=== PATIENT | female | born 1965 | race Hispanic/Latino ===

== ENCOUNTER 2016-11-27 10:58 | Emergency (ER) | payer SELFPAY ==
[2016-11-27 11:43] LABS: #Lymphocytes 1.8 thou/uL (1.20-3.40); #Monocytes 0.4 thou/uL (0.11-0.59); #Neutrophils 2.6 thou/uL (1.40-6.50); %Basophils 0.2 % (0.0-1.0); %Eosinophils 0.9 % (0.0-10.0); %Lymphocytes 36.5 % (21.0-51.0); %Monocytes 7.9 % (0.0-10.0); Hematocrit 43.5 % (36.0-47.0); Mean Platelet Volume 8.2 fL (7.4-10.4); Red Blood Cell (RBC) Count 4.59 mill/uL (4.20-5.40); White Blood Cell (WBC) Count 4.8 thou/uL (4.8-10.8)
[2016-11-27] MEDS ORDERED: Ondansetron HCl/PF 4 MG/2 ML Vial ONE ×2 (11:47→12:32)
[2016-11-27 12:13] LABS: ALT (SGPT) 87 U/L (8-55); AST (SGOT) 94 U/L (5-34); Alkaline Phosphatase 80 U/L (40-150); Anion Gap 9 mmol/L (10-20); BUN (Urea Nitrogen) 14 mg/dL (7.0-18.7); Calc. Creatinine Clearance 0 mL/min (70-130); Calcium 9.3 mg/dL (7.8-10.44); Carbon Dioxide 28 mmol/L (22-29); Chloride 103 mmol/L (98-107); Estimated GFR-MDRD 73; Globulin 3.5 g/dL (2.4-3.5); Lipase 57 U/L (8-78); Protein, Total 7.1 g/dL (6.0-8.3)
[2016-11-27] MEDS ORDERED: Morphine Sulfate 2 MG/ML SYRINGE ONE (12:33)
[2016-11-27 12:38] LABS: Lactic Acid - Sepsis 0.9 mmol/L (0.5-2.2)
[2016-11-27 13:47] LABS: Bilirubin Negative (Negative); Blood, Urine Negative (Negative); Glucose, Urine (Dipstick) Negative (Negative); Ketone, Urine Negative (Negative); Nitrite Negative (Negative); Protein, Urine (Dipstick) Negative (Neg-Trace)
--- NOTE | 2016-11-27 14:58 | CT ---
CT ABDOMEN WITH CONTRAST CT PELVIS WITH CONTRAST: HISTORY: 51-year-old female with generalized abdominal pain, nausea, and emesis. TECHNIQUE: IV injection of iodinated contrast media: Isovue Oral contrast media: Isovue FINDINGS: Liver: No focal solid mass. Spleen: No splenomegaly. Pancreas: No mass or surrounding fat stranding. Adrenals: No mass. Kidneys: No hydronephrosis or enhancement abnormalities. Ureters: No dilation. Bladder: No pathology identified. Abdominal aorta: No aneurysm. Small bowel: No dilation. Colon: No adjacent fat stranding. Appendix: No dilation or adjacent fat stranding. Free air: None. Free fluid: None. IMPRESSION: No major pathology identified. maria dolores POS: [facility]
[2016-11-27] MEDS ORDERED: Promethazine HCl 25 MG/ML VIAL ONE (15:31)
[2016-11-27] MEDS ORDERED: Iopamidol 370 76% 50 ML VIAL FS ONE (16:08)
[2016-11-27] MEDS ORDERED: ISOVUE-370 76%-LOCM 1 ML ONE (16:09)
== END 2016-11-27 16:46 | disposition home or self-care (01) ==
LOC: ERS 10:58
DX: K52.9 Noninfective gastroenteritis and colitis, unspecified (principal); R11.2 Nausea with vomiting, unspecified; F41.9 Anxiety disorder, unspecified; F32.9 Major depressive disorder, single episode, unspecified; F20.9 Schizophrenia, unspecified; F17.210 Nicotine dependence, cigarettes, uncomplicated
CPT/HCPCS: 74177; 80053; 81003; 82150; 83605; 83690; 84703; 85025; 93005; 94760; 96361; 96374; 96375; 96376; J2270; J2405; J2550

== ENCOUNTER 2017-02-28 12:50 | Emergency (ER) | payer SELFPAY ==
[2017-02-28 13:18] LABS: #Basophils 0.1 thou/uL (0.0-0.2); #Eosinphils 0.1 thou/uL (0.0-0.7); #Lymphocytes 1.8 thou/uL (1.20-3.40); #Monocytes 0.5 thou/uL (0.11-0.59); #Neutrophils 3.3 thou/uL (1.40-6.50); %Basophils 1.2 % (0.0-1.0); %Eosinophils 1.2 % (0.0-10.0); %Lymphocytes 31.6 % (21.0-51.0); %Monocytes 8.2 % (0.0-10.0); %Neutrophils 57.7 % (42.0-75.0); Hemoglobin 14.1 g/dL (12.0-16.0); Mean Corpuscular Hemoglobin 31.3 pg (27.0-31.0); Mean Platelet Volume 7.9 fL (7.4-10.4); Platelet Count 148 thou/uL (130-400); RBC Distribution Width 12.1 % (11.5-14.5); White Blood Cell (WBC) Count 5.8 thou/uL (4.8-10.8)
[2017-02-28 13:42] LABS: ALT (SGPT) 70 U/L (8-55); AST (SGOT) 78 U/L (5-34); Albumin 3.7 g/dL (3.5-5.0); Alkaline Phosphatase 80 U/L (40-150); Anion Gap 11 mmol/L (10-20); BUN (Urea Nitrogen) 12 mg/dL (7.0-18.7); Bilirubin, Total 0.5 mg/dL (0.2-1.2); Calc. Creatinine Clearance 0 mL/min (70-130); Calcium 9.2 mg/dL (7.8-10.44); Carbon Dioxide 27 mmol/L (22-29); Chloride 104 mmol/L (98-107); Estimated GFR-MDRD 78; Globulin 3.3 g/dL (2.4-3.5); Glucose 105 mg/dL (70-105); Sodium 138 mmol/L (136-145)
[2017-02-28] MEDS ORDERED: Lidocaine Viscous Sol 2% 15 ml UD Cup ONE (13:52)
[2017-02-28] MEDS ORDERED: Ondansetron HCl/PF 4 MG/2 ML Vial ONE (13:52)
[2017-02-28] MEDS ORDERED: Milk Of Magnesia 30 ML UDCUP ONE (13:52)
[2017-02-28] MEDS ORDERED: Pantoprazole 40 MG VIAL ONE (13:52)
[2017-02-28 14:05] LABS: Lipase 44 U/L (8-78)
[2017-02-28 14:47] LABS: Bilirubin Negative (Negative); Blood, Urine Negative (Negative); Clarity CLEAR (Clear); Glucose, Urine (Dipstick) Negative (Negative); Leukocyte Trace (Negative); Nitrite Negative (Negative); Protein, Urine (Dipstick) Negative (Neg-Trace); Specific Gravity, Urine 1.014 (1.002-1.036)
[2017-02-28 14:49] LABS: Bacteria/HPF None Seen HPF (None Seen); Hyaline Casts/LPF 0-3 HYALINE CAST LPF (0-3 Hyaline); RBC/HPF 0-3 HPF (0-3); Squamous Epithelial None Seen HPF (0-3); WBC/HPF 0-3 HPF (0-3)
== END 2017-02-28 15:08 | disposition home or self-care (01) ==
LOC: ERS 12:50
DX: R11.2 Nausea with vomiting, unspecified (principal); R10.13 Epigastric pain; K21.9 Gastro-esophageal reflux disease without esophagitis; F41.9 Anxiety disorder, unspecified; F31.9 Bipolar disorder, unspecified; F20.9 Schizophrenia, unspecified; F17.210 Nicotine dependence, cigarettes, uncomplicated
CPT/HCPCS: 36415; 80053; 81003; 81015; 83690; 85025; 96374; 96375; C9113; J2405

== ENCOUNTER 2017-10-06 16:53 | Emergency (ER) | payer SELFPAY ==
[2017-10-06 17:47] LABS: #Eosinphils 0.1 thou/uL (0.0-0.7); #Lymphocytes 1.9 thou/uL (1.20-3.40); #Monocytes 0.5 thou/uL (0.11-0.59); #Neutrophils 2.5 thou/uL (1.40-6.50); %Basophils 0.5 % (0.0-1.0); %Eosinophils 1.6 % (0.0-10.0); %Lymphocytes 37.1 % (21.0-51.0); %Monocytes 10.6 % (0.0-10.0); %Neutrophils 50.2 % (42.0-75.0); Mean Corpuscular Hemoglobin 31.3 pg (27.0-31.0); Mean Corpuscular Volume 91.9 fL (78.0-98.0); Mean Platelet Volume 7.5 fL (7.4-10.4); Platelet Count 120 thou/uL (130-400); RBC Distribution Width 12.4 % (11.5-14.5); Red Blood Cell (RBC) Count 4.16 mill/uL (4.20-5.40); White Blood Cell (WBC) Count 5.1 thou/uL (4.8-10.8)
[2017-10-06 18:10] LABS: Anion Gap 9 mmol/L (10-20); BUN (Urea Nitrogen) 11 mg/dL (7.0-18.7); Calc. Creatinine Clearance 0 mL/min (70-130); Calcium 8.6 mg/dL (7.8-10.44); Carbon Dioxide 27 mmol/L (22-29); Chloride 109 mmol/L (98-107); Estimated GFR-MDRD 79; Glucose 81 mg/dL (70-105); Potassium 4.3 mmol/L (3.5-5.1); Sodium 141 mmol/L (136-145)
[2017-10-06] MEDS ORDERED: hydrOXYzine 25 MG TAB ONE (19:38)
[2017-10-06] MEDS ORDERED: Ketorolac Tromethamine 60 MG/2 ML VIAL ONE (19:38)
== END 2017-10-06 20:06 | disposition home or self-care (01) ==
LOC: ERS 16:53
DX: R25.2 Cramp and spasm (principal); F41.9 Anxiety disorder, unspecified; F31.9 Bipolar disorder, unspecified; F17.210 Nicotine dependence, cigarettes, uncomplicated
CPT/HCPCS: 36415; 80048; 85025; 96372; J1885

== ENCOUNTER 2017-12-18 01:49 | Emergency (ER) | payer SELFPAY ==
[2017-12-18 02:18] LABS: #Eosinphils 0.1 thou/uL (0.0-0.7); #Lymphocytes 2.6 thou/uL (1.20-3.40); #Monocytes 0.6 thou/uL (0.11-0.59); #Neutrophils 2.7 thou/uL (1.40-6.50); %Basophils 0.5 % (0.0-1.0); %Eosinophils 1.3 % (0.0-10.0); %Lymphocytes 43.1 % (21.0-51.0); %Monocytes 10.2 % (0.0-10.0); Hemoglobin 13.5 g/dL (12.0-16.0); Mean Corpuscular HGB CONC 32.9 g/dL (32.0-36.0); Mean Corpuscular Hemoglobin 29.8 pg (27.0-31.0); Mean Corpuscular Volume 90.5 fL (78.0-98.0); Mean Platelet Volume 7.9 fL (7.4-10.4); Platelet Count 150 thou/uL (130-400); RBC Distribution Width 12.7 % (11.5-14.5); Red Blood Cell (RBC) Count 4.54 mill/uL (4.20-5.40); White Blood Cell (WBC) Count 6.1 thou/uL (4.8-10.8)
[2017-12-18 02:39] LABS: ALT (SGPT) 68 U/L (8-55); AST (SGOT) 82 U/L (5-34); Albumin 3.7 g/dL (3.5-5.0); Alkaline Phosphatase 80 U/L (40-150); Anion Gap 11 mmol/L (10-20); BUN (Urea Nitrogen) 15 mg/dL (7.0-18.7); Bilirubin, Total 0.6 mg/dL (0.2-1.2); Calc. Creatinine Clearance 0 mL/min (70-130); Calcium 9.2 mg/dL (7.8-10.44); Carbon Dioxide 22 mmol/L (22-29); Chloride 105 mmol/L (98-107); Estimated GFR-MDRD 77; Globulin 3.4 g/dL (2.4-3.5); Glucose 129 mg/dL (70-105); Lipase 57 U/L (8-78); Potassium 4.3 mmol/L (3.5-5.1); Protein, Total 7.1 g/dL (6.0-8.3); Sodium 134 mmol/L (136-145)
[2017-12-18] MEDS ORDERED: Morphine 4 MG/ML VIAL ONE (02:52)
[2017-12-18] MEDS ORDERED: Ondansetron PF 4 MG/2 ML Vial ONE (02:52)
[2017-12-18 04:21] LABS: Bilirubin Negative (Negative); Blood, Urine Negative (Negative); Clarity CLEAR (Clear); Glucose, Urine (Dipstick) Negative (Negative); Leukocyte Negative (Negative); Nitrite Negative (Negative); Protein, Urine (Dipstick) Negative (Neg-Trace); Specific Gravity, Urine 1.014 (1.002-1.036); pH, Urine 7.5 (5.0-9.0)
--- NOTE | 2017-12-18 08:33 | RAD ---
PORTABLE CHEST ONE VIEW: Date: 12-18-17 Time: 2:12 a.m. History: Chest pain, shortness of breath. FINDINGS: Comparison is made with exam of 01-07-15. The heart size is normal. The lungs are well expanded without focal areas of consolidation, pneumotho races or pleural effusions. IMPRESSION: No radiographic evidence of acute cardiopulmonary process. POS: [facility]
--- NOTE | 2017-12-18 12:11 | CT ---
PRELIMINARY REPORT/[facility]/EMERGENCY AFTER HOURS PROCEDURE: EXAM: CT Abdomen and Pelvis With Intravenous Contrast EXAM DATE/TIME: 12/18/2017 3:32 AM CLINICAL HISTORY: 52 years old, female; Pain; Abdominal pain; Localized; Right upper quadrant (ruq); Prior surgery; Surgery type: Surgical history of cholecystectomy, surgical history of tubal ligation; Patient HX: F5 0 coming in with worsening right upper quadrant pain for the last two days. Mild cough the last few d ays with pain that started yesterday. Pain worsening since then, attempted relief with aleve without impr ovement. TECHNIQUE: Axial computed tomography images of the abdomen and pelvis with intravenous contrast. Coronal reforma tted images were created and reviewed. COMPARISON: No relevant prior studies available. FINDINGS: Lower thorax: The visualized portions of the lung bases are normal. ABDOMEN: Liver: There is a small focal hypoattenuation with peripheral enhancement within segment 7 of the isabel er probably representing a benign hemangioma. Gallbladder and bile ducts: There has been a cholecystectomy. There is a mild, expected degree of int rahepatic and common bile duct dilation. Pancreas: The pancreas appears normal. Spleen: The spleen is normal. Adrenals: The adrenal glands are normal. Kidneys and ureters: The kidneys appear normal. Stomach and bowel: There is questionable stranding at the distal stomach/proximal duodenum possibly r epresenting peptic ulcer disease. The colon is normal. There is no evidence of intestinal perforation or obstruction. Appendix: A normal appendix is identified. PELVIS: Bladder: The bladder is normal. Reproductive: The uterus is normal. ABDOMEN and PELVIS: Intraperitoneal space: Normal. No free air. No significant fluid collection. Bones/joints: No acute fracture. No dislocation. Soft tissues: Unremarkable. Vasculature: The vasculature demonstrates diffuse mild atherosclerotic calcification. Lymph nodes: Normal. No enlarged lymph nodes. IMPRESSION: 1. There is questionable stranding at the distal stomach/proximal duodenum possibly representing pept ic ulcer disease. Clinical correlation is advised. 2. RIGHT liver lesion probably a benign hemangioma in the absence of neoplastic risk factors. Thank you for allowing us to participate in the care of your patient. Dictated and Authenticated by: Wilfred Aparicio MD 12/18/2017 3:49 AM Central Time ([place] & [place]) FINAL REPORT CT ABDOMEN AND PELVIS WITH IV CONTRAST: Date: 12-18-17 Performed on emergency basis at 0334 hours. History: Upper abdomen pain. Comparison: 11-27-16 FINDINGS: I agree with the preliminary report by Dr. Aparicio from [facility]. Gallbladder is surgically a bsent. Subtle fat stranding around the pylorus and proximal duodenum. Findings may represent duodenit is. Cause is not evident. Other findings are stable. POS: [facility]
[2017-12-18] MEDS ORDERED: Iopamidol 370 76% 100 ML VIAL ONE (16:27)
== END 2017-12-18 04:37 | disposition home or self-care (01) ==
LOC: ERS 01:49
DX: R10.11 Right upper quadrant pain (principal); F17.210 Nicotine dependence, cigarettes, uncomplicated
CPT/HCPCS: 36415; 71045; 74177; 80053; 81003; 83690; 85025; 93005; 94760; 96374; 96375; J2270; J2405

== ENCOUNTER 2018-03-13 13:02 | Emergency (ER) | payer SELFPAY ==
--- NOTE | 2018-03-13 13:41 | RAD ---
TWO VIEWS LEFT WRIST: Date: 03-13-18 History: Syncopal episode at work. Patient was injured and now has left wrist deformity. Comparison: None available. FINDINGS: There is a transverse fracture involving the distal left radial metaphysis with a distal fracture fra gment displaced dorsally by approximately shaft width. There is slight impaction of fracture frag ments with apex volar angulation of the fracture fragments. There is a small avulsion fracture involv ing the ulnar styloid process. No definite additional fracture is appreciated and there is no disloca tion. Subcutaneous soft tissue swelling is seen about the left wrist. IMPRESSION: 1. Mildly displaced and angulated fracture distal left radial metaphysis. 2. Avulsion fracture ulnar styloid process. POS: [facility]
[2018-03-13] MEDS ORDERED: Ondansetron PF 4 MG/2 ML Vial ONE (14:04)
[2018-03-13] MEDS ORDERED: Fentanyl 100 MCG/2 ML VIAL ONE ×2 (14:04→15:38)
--- NOTE | 2018-03-13 14:13 | CT ---
CT HEAD NONCONTRAST: Date: 03/13/18 HISTORY: Syncope. FINDINGS: No comparison. There is no evidence of acute intracranial hemorrhage or infarction. Motion artifact obscures detail. There is no mass effect or shift of midline structures. Visualized paranasal sinuses remain well aer ated. IMPRESSION: No acute intracranial abnormalities are demonstrated. POS: [facility]
[2018-03-13 14:28] LABS: #Eosinphils 0.1 thou/uL (0.0-0.7); #Lymphocytes 1.5 thou/uL (1.20-3.40); #Monocytes 0.6 thou/uL (0.11-0.59); #Neutrophils 3.5 thou/uL (1.40-6.50); %Basophils 0.3 % (0.0-1.0); %Eosinophils 1.1 % (0.0-10.0); %Lymphocytes 26.1 % (21.0-51.0); %Monocytes 9.9 % (0.0-10.0); %Neutrophils 62.6 % (42.0-75.0); Hemoglobin 12.5 g/dL (12.0-16.0); Mean Corpuscular HGB CONC 32.5 g/dL (32.0-36.0); Mean Corpuscular Volume 92.3 fL (78.0-98.0); Platelet Count 135 thou/uL (130-400); RBC Distribution Width 12.7 % (11.5-14.5); Red Blood Cell (RBC) Count 4.16 mill/uL (4.20-5.40); White Blood Cell (WBC) Count 5.6 thou/uL (4.8-10.8)
[2018-03-13 14:52] LABS: ALT (SGPT) 52 U/L (8-55); AST (SGOT) 75 U/L (5-34); Albumin 3.3 g/dL (3.5-5.0); Alkaline Phosphatase 87 U/L (40-150); Anion Gap 10 mmol/L (10-20); BUN (Urea Nitrogen) 10 mg/dL (7.0-18.7); Bilirubin, Total 0.6 mg/dL (0.2-1.2); Calc. Creatinine Clearance 0 mL/min (70-130); Calcium 8.5 mg/dL (7.8-10.44); Carbon Dioxide 23 mmol/L (22-29); Chloride 108 mmol/L (98-107); Estimated GFR-MDRD 69; Globulin 2.9 g/dL (2.4-3.5); Glucose 96 mg/dL (70-105); Potassium 4.5 mmol/L (3.5-5.1); Protein, Total 6.2 g/dL (6.0-8.3); Sodium 136 mmol/L (136-145)
== END 2018-03-13 16:12 | disposition home or self-care (01) ==
LOC: ERS 13:02
DX: S52.612A Displaced fracture of left ulna styloid process, initial encounter for closed fracture (principal); S52.502A Unspecified fracture of the lower end of left radius, initial encounter for closed fracture; F17.210 Nicotine dependence, cigarettes, uncomplicated; W18.30XA Fall on same level, unspecified, initial encounter
CPT/HCPCS: 29125; 36415; 70450; 80053; 84484; 85025; 93005; 96374; 96375; 96376; J2405; J3010

== ENCOUNTER 2018-03-15 23:28 | Emergency (ER) | payer SELFPAY ==
[2018-03-16 01:07] LABS: #Lymphocytes 1.8 thou/uL (1.20-3.40); #Monocytes 0.7 thou/uL (0.11-0.59); #Neutrophils 4.2 thou/uL (1.40-6.50); %Basophils 0.1 % (0.0-1.0); %Eosinophils 0.2 % (0.0-10.0); %Monocytes 9.8 % (0.0-10.0); %Neutrophils 62.9 % (42.0-75.0); Hemoglobin 13.4 g/dL (12.0-16.0); Mean Corpuscular HGB CONC 32.7 g/dL (32.0-36.0); Mean Corpuscular Hemoglobin 29.8 pg (27.0-31.0); Mean Corpuscular Volume 91.4 fL (78.0-98.0); Mean Platelet Volume 8.2 fL (7.4-10.4); Platelet Count 136 thou/uL (130-400); RBC Distribution Width 12.7 % (11.5-14.5); Red Blood Cell (RBC) Count 4.49 mill/uL (4.20-5.40); White Blood Cell (WBC) Count 6.7 thou/uL (4.8-10.8)
[2018-03-16 01:27] LABS: ALT (SGPT) 47 U/L (8-55); AST (SGOT) 61 U/L (5-34); Albumin 3.4 g/dL (3.5-5.0); Alkaline Phosphatase 84 U/L (40-150); Anion Gap 16 mmol/L (10-20); BUN (Urea Nitrogen) 13 mg/dL (7.0-18.7); Bilirubin, Total 0.6 mg/dL (0.2-1.2); Calc. Creatinine Clearance 0 mL/min (70-130); Calcium 9.7 mg/dL (7.8-10.44); Carbon Dioxide 27 mmol/L (22-29); Chloride 101 mmol/L (98-107); Estimated GFR-MDRD 75; Globulin 3.2 g/dL (2.4-3.5); Glucose 98 mg/dL (70-105); Lipase 34 U/L (8-78); Potassium 3.6 mmol/L (3.5-5.1); Protein, Total 6.6 g/dL (6.0-8.3); Sodium 140 mmol/L (136-145)
[2018-03-16] MEDS ORDERED: Ondansetron PF 4 MG/2 ML Vial ONE (02:04)
[2018-03-16] MEDS ORDERED: Morphine 4 MG/ML VIAL ONE (02:04)
[2018-03-16] MEDS ORDERED: Pantoprazole 40 MG VIAL ONE (02:04)
--- NOTE | 2018-03-16 07:55 | RAD ---
CHEST 1 VIEW: Date: 03/16/18 INDICATION: History of weakness. COMPARISON: Prior exam dated 12/18/17. FINDINGS: Lungs are clear. Cardiomediastinal silhouette is within normal limits. No acute osseous abnormality i s evident. IMPRESSION: No acute cardiopulmonary abnormality. POS: [facility]
--- NOTE | 2018-03-16 08:14 | CT ---
PRELIMINARY REPORT/[facility]/EMERGENCY AFTER HOURS PROCEDURE: EXAM: CT Abdomen and Pelvis With Contrast EXAM DATE/TIME: 03/16/2018 1:27 AM CLINICAL HISTORY: 52 years old, female; Pain; Abdominal pain; Acute; Patient HX: 52 y/o f with C/O back pain, abd pain, n/v since saturday night. Per PT, no melena, diarrhea. She does note constipation, with last bm on sat. Nkda. HX of cholecystectomy TECHNIQUE: Axial computed tomography images of the abdomen and pelvis with intravenous contrast. Coronal reforma tted images were created and reviewed. COMPARISON: No relevant prior studies available. FINDINGS: Lower thorax: There is subpleural atelectasis of the dependent portions of the lungs. ABDOMEN: Liver: Normal. No mass. Gallbladder and bile ducts: There has been a cholecystectomy. There is no common bile duct dilation. Pancreas: There is a 6 mm hypoattenuating density within the pancreas possibly representing a cyst or sidebranch IPMN. Spleen: The spleen is normal. Adrenals: The adrenal glands are normal. Kidneys and ureters: The kidneys appear normal. No hydronephrosis. Stomach and bowel: The stomach is normal. The duodenum is unremarkable. The colon is normal. There ar e areas of small bowel wall thickening within the LEFT upper quadrant possibly representing enteritis in the appropriate clinical setting. Appendix: A normal appendix is identified. PELVIS: Bladder: The bladder is normal. Reproductive: The uterus is normal. ABDOMEN and PELVIS: Intraperitoneal space: Normal. No free air. No significant fluid collection. Bones/joints: No acute fracture. No dislocation. Soft tissues: Unremarkable. Vasculature: Normal. No abdominal aortic aneurysm. Lymph nodes: Normal. No enlarged lymph nodes. IMPRESSION: There are areas of small bowel wall thickening within the LEFT upper quadrant possibly representing e nteritis in the appropriate clinical setting. Thank you for allowing us to participate in the care of your patient. Dictated and Authenticated by: Wilfred Aparicio MD 03/16/2018 2:39 AM Central Time ([place] & [place]) FINAL REPORT EMERGENCY AFTER HOURS CT ABDOMEN AND PELVIS: Date: 03/16/18 IMPRESSION: I agree with the preliminary report provided by [facility]. There are a few mildly prominent loops of bowel within the upper abdomen that could be related to per istalsis and artifact versus enteritis. Recommend correlation with clinical exam. There is diffuse fatty infiltration of the liver. There is a tiny hypodensity within the pancreatic h ead that is difficult to fully characterize on the current examination. This has been present on mult iple CT examination dating back to 2009 and is likely benign. There are mild varicosities surrounding the uterus. No free fluid is grossly evident. There is some suggestion of mild perivesicular fat stranding with m ild wall thickening. Recommend correlation for cystitis. No definite acute osseous abnormality is evident. POS: [facility]
[2018-03-16] MEDS ORDERED: ISOVUE-370 76%-LOCM 1 ML ONE (16:51)
--- NOTE | 2018-03-22 15:28 | EKG ---
Test Reason : ABDOMINALPAIN Blood Pressure : / mmHG Vent. Rate : 075 BPM Atrial Rate : 075 BPM P-R Int : 100 ms QRS Dur : 086 ms QT Int : 374 ms P-R-T Axes : 068 065 055 degrees QTc Int : 417 ms Sinus rhythm with short NE Possible Left atrial enlargement Borderline ECG Confirmed by LANI DU, GERARD ([id number]), video effects editor ANTON HATFIELD ([id number]) on 03/22/2018 3:28:23 PM Referred By: LANI Confirmed By:GERARD GARIBAY MD
== END 2018-03-16 03:55 | disposition home or self-care (01) ==
LOC: ERS 23:28
DX: R10.11 Right upper quadrant pain (principal); R11.2 Nausea with vomiting, unspecified; F17.210 Nicotine dependence, cigarettes, uncomplicated; Z79.899 Other long term (current) drug therapy
CPT/HCPCS: 71045; 74177; 80053; 83690; 84484; 85025; 93005; 96361; 96374; 96375; C9113; J2270; J2405; Q9966

== ENCOUNTER 2018-03-17 13:11 | Day surgery (SDC) | payer SELFPAY ==
[2018-03-17] MEDS ORDERED: Fentanyl 100 MCG/2 ML VIAL ONE ×2 (13:53→15:36)
[2018-03-17] MEDS ORDERED: Lidocaine 1% (PF) 30 ML VIAL ONE (13:53)
[2018-03-17] MEDS ORDERED: Midazolam HCl 2 mg/2 ml Vial ONE (13:53)
[2018-03-17] MEDS ORDERED: Bupivacaine HCl 0.5%/Epinephrine 1:200,000/PF 30 ml Vial ONE (15:11)
[2018-03-17] MEDS ORDERED: ePHEDrine 50 MG/ML VIAL ONE (15:22)
[2018-03-17] MEDS ORDERED: Dexamethasone 20 MG/5 ML VIAL ONE (15:22)
[2018-03-17] MEDS ORDERED: PHENYLEPHRINE-NS 100 MCG/ML 10 ML SYRINGE ONE (15:22)
[2018-03-17] MEDS ORDERED: Ondansetron PF 4 MG/2 ML Vial ONE (15:22)
[2018-03-17] MEDS ORDERED: PROPOFOL 200 MG/20 ML VIAL ONE (15:22)
[2018-03-17] MEDS ORDERED: Lidocaine 1% PF 5 ML VIAL ONE (15:22)
[2018-03-17] MEDS ORDERED: CEFAZOLIN 2 GM/50 ML BAG ONE (15:45)
--- NOTE | 2018-03-17 17:30 | RAD ---
2 INTRAOPERATIVE RADIOGRAPHS OF LEFT WRIST: Date: 03/17/18 HISTORY: Open reduction and internal fixation. FINDINGS: The previously noted distal left radial fracture has been treated with a volar screw and plate fixati on. There is anatomic alignment at the fracture site. There is a fracture at the base of the ulnar st yloid as before. IMPRESSION: Open reduction and internal fixation as detailed above. POS: [facility]
--- NOTE | 2018-03-18 15:02 | OP ---
DATE OF PROCEDURE: 03/17/2018 PREOPERATIVE DIAGNOSIS: Left extra-articular distal radius fracture (three fragments). POSTOPERATIVE DIAGNOSIS: Left extra-articular distal radius fracture (three fragments). PROCEDURE PERFORMED: Open reduction and internal fixation of left distal radius. ANESTHESIA: General. MENTAL HEALTH SOCIAL WORKER: Gabriele. TOURNIQUET TIME: 40 minutes at 250 mmHg. IMPLANTS: Synthes system was used with a 2.4-mm variable angle LCP 2-column plate and appropriate length 2.7-mm cortical screws and 2.4-mm locking screws. COMPLICATIONS: None. DRAINS: None. SPECIMEN: None. OUTCOME: Near-anatomic alignment. INDICATIONS FOR PROCEDURE: Lamar is a pleasant 52-year-old lady, status post fall on outstretched wrist sustaining distal radius fracture with approximately 50 degrees of dorsal angulation and some dorsal comminution. After discussion with the patient including risks and benefits, we have decided to proceed with an open reduction and internal fixation to restore anatomy and hopefully provide improved function in this wrist. Informed consent has been obtained. I believe, all questions have been answered. DESCRIPTION OF PROCEDURE: The patient was brought to the operating room, and a time-out was performed followed by induction of general anesthesia. Next, the patient was positioned supine on the OR table with the left arm on a hand table. A sterile prep and drape were then performed of the left upper extremity. Next, the limb was exsanguinated with Esmarch bandage, tourniquet was inflated to 250 mmHg. A volar radial skin incision was made. The interval between the flexor carpi radialis and brachioradialis was exploited with care to identify and preserve the neurovascular bundle, that was swept to the radial side of the incision. At this point, the pronator quadratus could be identified. This was released off the radial border of the distal radius and reflected to the midline revealing the underlying fracture. The fracture hematoma was lavaged from the wound, and then the fracture was reduced to an anatomic alignment as checked under both direct visualization and AP and lateral C-arm imaging. Next, a volar plate was applied to the distal radius and held in place provisionally with a 2.7-mm screw in the slotted hole proximal to the fracture. AP and lateral C-arm images were then obtained, and the plate was adjusted on the bone to an appropriate position. This was then followed by insertion of four 2.4-mm locking screws through the horizontal limb of the plate just below the joint surface. Next, two additional 2.7-mm cortical screws were placed proximal in the longitudinal limb of the plate. At the completion of this, final x-ray images were obtained, that showed adventism of radial inclination, volar tilt, and radial length with appropriate positioning of the hardware. The wound was then irrigated with normal saline with bulb syringe and closed in layers with 2-0 Vicryl followed by 4-0 nylon in horizontal mattress fashion. Xeroform gauze, Webril, fiberglass, and sugar-tong splint were applied to the arm. Tourniquet was let down with a total time of 40 minutes, and the patient was transferred to recovery room in stable condition. There were no complications. She tolerated the procedure well. Job ID: [id number]
== END 2018-03-17 18:15 | disposition home or self-care (01) ==
LOC: SDC 13:11
PROVIDERS: ATTEND Orthopaedic Surgery
PROC: 0PSJ04Z Reposition Left Radius with Internal Fixation Device, Open Approach (ICD-10-PCS; principal; 2018-03-17)
DX: S52.552A Other extraarticular fracture of lower end of left radius, initial encounter for closed fracture (principal); F17.200 Nicotine dependence, unspecified, uncomplicated; Z79.1 Long term (current) use of non-steroidal anti-inflammatories (NSAID); Z79.899 Other long term (current) drug therapy; W01.0XXA Fall on same level from slipping, tripping and stumbling without subsequent striking against object, initial encounter
CPT/HCPCS: 76000; C1713; J2001; J2250; J3010

== ENCOUNTER 2018-10-29 12:47 | Emergency (ER) | payer SELFPAY | END 2018-10-29 13:25 | disposition home or self-care (01) | LOC: ERS 12:47 | DX: S16.1XXA Strain of muscle, fascia and tendon at neck level, initial encounter (principal); M54.42 Lumbago with sciatica, left side; F17.210 Nicotine dependence, cigarettes, uncomplicated; X58.XXXA Exposure to other specified factors, initial encounter | CPT/HCPCS: 99283 ==

== ENCOUNTER 2019-11-16 16:30 | Emergency (ER) | payer OTHER, SELFPAY ==
[2019-11-16 17:29] LABS: #Eosinphils 0.1 thou/uL (0.0-0.7); #Lymphocytes 2.1 thou/uL (1.20-3.40); #Monocytes 0.9 thou/uL (0.11-0.59); #Neutrophils 6.4 thou/uL (1.40-6.50); %Basophils 0.2 % (0.0-1.0); %Eosinophils 0.5 % (0.0-10.0); %Lymphocytes 21.8 % (21.0-51.0); %Monocytes 9.9 % (0.0-10.0); %Neutrophils 67.5 % (42.0-75.0); Hemoglobin 14.4 g/dL (12.0-16.0); Mean Corpuscular HGB CONC 32.4 g/dL (32.0-36.0); Mean Corpuscular Hemoglobin 30.6 pg (27.0-31.0); Mean Corpuscular Volume 94.4 fL (78.0-98.0); Mean Platelet Volume 8.6 fL (7.4-10.4); Platelet Count 129 thou/uL (130-400); RBC Distribution Width 12.8 % (11.5-14.5); Red Blood Cell (RBC) Count 4.72 mill/uL (4.20-5.40); White Blood Cell (WBC) Count 9.5 thou/uL (4.8-10.8)
[2019-11-16 17:51] LABS: ALT (SGPT) 68 U/L (8-55); AST (SGOT) 82 U/L (5-34); Albumin 3.4 g/dL (3.5-5.0); Alkaline Phosphatase 120 U/L (40-110); Anion Gap 12 mmol/L (10-20); BUN (Urea Nitrogen) 9 mg/dL (9.8-20.1); Bilirubin, Total 0.8 mg/dL (0.2-1.2); CK (CPK) 127 U/L (29-168); Calc. Creatinine Clearance 0 mL/min (70-130); Calcium 8.3 mg/dL (7.8-10.44); Carbon Dioxide 27 mmol/L (22-29); Chloride 105 mmol/L (98-107); Estimated GFR-MDRD 82; Globulin 3.4 g/dL (2.4-3.5); Glucose 101 mg/dL (70-105); Potassium 4.6 mmol/L (3.5-5.1); Protein, Total 6.8 g/dL (6.0-8.3); Sodium 139 mmol/L (136-145)
--- NOTE | 2019-11-16 19:36 | RAD ---
Exam: Chest one view HISTORY:Cough Comparison: 03/16/2018 FINDINGS: Cardiac silhouette: Normal Aorta: Atherosclerotic Pulmonary vessels: Normal Costophrenic angles: Clear LUNGS: Hyperinflated. Chronic changes. Left lower lobe infiltrate. Pneumothorax: None Osseous abnormalities: None IMPRESSION: 1. Atherosclerosis 2. Left lower lobe infiltrate.
[2019-11-17 16:27] LABS: SARS-CoV-2 MS2 Positive; SARS-CoV-2 N Gene Negative; SARS-CoV-2 S Gene Negative; SARS-CoV-2 by NAA Not Detected (NotDetected); SARS-CoV-2 orf1ab Negative
== END 2019-11-16 20:09 | disposition home or self-care (01) ==
LOC: ERS 16:30
DX: J15.9 Unspecified bacterial pneumonia (principal); R03.0 Elevated blood-pressure reading, without diagnosis of hypertension; R79.89 Other specified abnormal findings of blood chemistry; F17.210 Nicotine dependence, cigarettes, uncomplicated
CPT/HCPCS: 36415; 71045; 80053; 82550; 83880; 84484; 85025; 87635; 93005; U0003

== ENCOUNTER 2020-10-16 17:49 | Emergency (ER) | payer SELFPAY ==
[~2020-10-16 17:49] MED LIST: Iopamidol-370 76% 500 ML 1 ML ONE
[2020-10-16 18:40] LABS: #Lymphocytes 2.9 thou/uL (1.20-3.40); #Monocytes 0.6 thou/uL (0.11-0.59); #Neutrophils 4.6 thou/uL (1.40-6.50); %Basophils 0.2 % (0.0-1.0); %Eosinophils 0.2 % (0.0-10.0); %Lymphocytes 35.4 % (21.0-51.0); %Monocytes 7.8 % (0.0-10.0); %Neutrophils 56.3 % (42.0-75.0); Hemoglobin 13.3 g/dL (12.0-16.0); Mean Corpuscular Hemoglobin 30.8 pg (27.0-31.0); Mean Corpuscular Volume 93.3 fL (78.0-98.0); Mean Platelet Volume 8.5 fL (7.4-10.4); Platelet Count 98 thou/uL (130-400); RBC Distribution Width 13.9 % (11.5-14.5); Red Blood Cell (RBC) Count 4.33 mill/uL (4.20-5.40); White Blood Cell (WBC) Count 8.2 thou/uL (4.8-10.8)
[2020-10-16] MEDS ORDERED: Lidocaine Viscous Sol 2% 15 ml UD Cup ONE (18:50)
[2020-10-16] MEDS ORDERED: Mag-Al 1200 mg/1200 mg/30 ML UDCUP ONE (18:50)
[2020-10-16 18:51] LABS: ALT (SGPT) 102 U/L (8-55); AST (SGOT) 149 U/L (5-34); Albumin 3.3 g/dL (3.5-5.0); Alkaline Phosphatase 129 U/L (40-110); Anion Gap 12 mmol/L (10-20); BUN (Urea Nitrogen) 9 mg/dL (9.8-20.1); Bilirubin, Total 1.2 mg/dL (0.2-1.2); Calc. Creatinine Clearance 0 mL/min (70-130); Carbon Dioxide 23 mmol/L (22-29); Chloride 107 mmol/L (98-107); Globulin 3.9 g/dL (2.4-3.5); Glucose 97 mg/dL (70-105); Lipase 29 U/L (8-78); Potassium 3.8 mmol/L (3.5-5.1); Protein, Total 7.2 g/dL (6.0-8.3); Sodium 138 mmol/L (136-145)
== END 2020-10-16 21:11 | disposition home or self-care (01) ==
LOC: ERS 17:49
DX: S62.635A Displaced fracture of distal phalanx of left ring finger, initial encounter for closed fracture (principal); K74.60 Unspecified cirrhosis of liver; F17.210 Nicotine dependence, cigarettes, uncomplicated; X58.XXXA Exposure to other specified factors, initial encounter
CPT/HCPCS: 36415; 71046; 71275; 80053; 83690; 84484; 85025; 85379; 93005; Q9967

== ENCOUNTER 2023-11-18 20:19 | Emergency (ER) | payer OTHER, SELFPAY ==
[2023-11-18 21:31] LABS: #Basophils Less than 0.03 10x3/uL (0.0-0.2); %Basophils 0.3 % (0.0-1.0); %Eosinophils 0.8 % (0.0-10.0); %Lymphocytes 34.9 % (21.0-51.0); %Monocytes 8.9 % (0.0-10.0); Hematocrit 37.8 % (36.0-47.0); Hemoglobin 12.3 g/dL (12.0-16.0); Mean Corpuscular HGB CONC 32.5 g/dL (32.0-36.0); Mean Corpuscular Hemoglobin 29.9 pg (27.0-31.0); Mean Corpuscular Volume 91.7 fL (78.0-98.0); Mean Platelet Volume 10.6 fL (7.4-10.4); Platelet Count 129 10x3/uL (130-400); RBC Distribution Width 15.2 % (11.5-14.5); Red Blood Cell (RBC) Count 4.12 mill/uL (4.20-5.40)
[2023-11-18 21:35] LABS: Bacteria/HPF None Seen HPF (None Seen); Bilirubin Negative (Negative); Blood, Urine Negative (Negative); CAUTI Indications for Culture Alt mental st,lethar; Clarity Clear (Clear); Glucose, Urine (Dipstick) Normal (Negative); Ketone, Urine Negative (Negative); Leukocyte 250 Leu/uL (Negative); Nitrite Negative (Negative); Protein, Urine (Dipstick) Negative (Neg-Trace); RBC/HPF 0-3 HPF (0-3); Specific Gravity, Urine 1.009 (1.002-1.036); Squamous Epithelial 0-3 HPF (0-3); WBC/HPF 0-3 HPF (0-3)
[2023-11-18 21:37] LABS: Urine Culture Reflex No No
[2023-11-18 21:38] LABS: ALT (SGPT) 83 U/L (8-55); AST (SGOT) 151 U/L (5-34); Albumin 3.2 g/dL (3.5-5.0); Alkaline Phosphatase 98 U/L (40-110); Anion Gap 12 mmol/L (10-20); BUN (Urea Nitrogen) 11 mg/dL (9.8-20.1); Bilirubin, Total 0.8 mg/dL (0.2-1.2); Calc. Creatinine Clearance 0 mL/min (70-130); Calcium 9.2 mg/dL (7.8-10.44); Carbon Dioxide 27 mmol/L (22-29); Chloride 106 mmol/L (98-107); Estimated GFR 84; Globulin 3.2 g/dL (2.4-3.5); Glucose 102 mg/dL (70-105); Lipase 42 U/L (8-78); Potassium 3.7 mmol/L (3.5-5.1); Protein, Total 6.4 g/dL (6.0-8.3); Sodium 141 mmol/L (136-145)
[2023-11-18 21:44] LABS: Troponin I 0.019 ng/mL (< 0.028)
== END 2023-11-18 23:05 | disposition home or self-care (01) ==
LOC: ERS 20:19
DX: K92.1 Melena (principal); F17.210 Nicotine dependence, cigarettes, uncomplicated
CPT/HCPCS: 36415; 71045; 80053; 81001; 82274; 83690; 84484; 85025; 86850; 86900; 86901; 93005